=== PATIENT | male | born 2000 | race African-American/Black ===

== ENCOUNTER 2021-04-23 17:40 | Emergency (ER) | payer OTHER ==
[2021-04-23 18:12] VITALS: BP 143/89; PULSE 95; TEMP 99.2; BMI 28.5
[2021-04-23] MEDS ORDERED: DIPHTH,PERTUSS(ACELL),TET 0.5 ML DISP.SYRIN IM ONE ×2 (18:23→18:57)
[2021-04-23] MEDS ORDERED: ACETAMINOPHEN 500 MG TABLET (FP) PO ONE (18:33)
[2021-04-23] MEDS ORDERED: ACETAMINOPHEN 500 MG TABLET (FP) ONE (18:57)
== END 2021-04-23 19:22 | disposition home or self-care (01) ==
LOC: FER 17:40
PROC: 3E0234Z Introduction of Serum, Toxoid and Vaccine into Muscle, Percutaneous Approach (ICD-10-PCS; principal; 2021-04-23)
DX: S62.317A Displaced fracture of base of fifth metacarpal bone, left hand, initial encounter for closed fracture (principal)
CPT/HCPCS: 73110-TC-LT-FY; 73130-TC-LT-FY; 90471; 90715; 99285-25